=== PATIENT | female | born 1995 | race Caucasian/White ===

== ENCOUNTER → 2024-06-09 08:09 | Outpatient (REF) | payer BC, SELFPAY | LOC: WDC 08:09 | PROVIDERS: ATTENDING PHYSICIAN Nurse Practitioner Adult Health | DX: R92.2 Inconclusive mammogram (principal); D24.9 Benign neoplasm of unspecified breast | CPT/HCPCS: 76641 ==

== ENCOUNTER → 2024-06-17 10:48 | Outpatient (REF) | payer BC, SELFPAY ==
--- NOTE | 2024-06-17 14:17 | OID.BR.INTR ---
[facility]igator - Initial
- -
Date of Contact: 06/17/24
Met with patient. Patient given written information on navigator services available at [facility]. Will follow up as needed per protocol.
== END ==
LOC: WDC 10:48
PROVIDERS: ATTENDING PHYSICIAN Nurse Practitioner Adult Health
DX: N63.21 Unspecified lump in the left breast, upper outer quadrant (principal)
CPT/HCPCS: 88305; 19083; 19084; A4648

== ENCOUNTER → 2024-10-27 13:25 | Outpatient (REF) | payer BC, SELFPAY | LOC: PNTC 13:25 | DX: Z34.82 Encounter for supervision of other normal pregnancy, second trimester (principal); Z36.3 Encounter for antenatal screening for malformations; Z36.86 Encounter for antenatal screening for cervical length | CPT/HCPCS: 76805 ==